=== PATIENT | male | born 1940 ===

== ENCOUNTER 2021-01-17 11:28 | Inpatient (IN) | payer OTHER ==
[~2021-01-17] VITALS: Ht 170.2 cm; Wt 72.6 kg
[2021-01-17] MEDS ORDERED: DOXAZOSIN MESYLA4 MG (11:41)
[2021-01-17] MEDS ORDERED: ENALAPRIL MALEA10 MG (11:41)
[2021-01-17] MEDS ORDERED: CHLORTHALIDONE25 MG (11:41)
[2021-01-17] MEDS ORDERED: PEPCID AC20 MG (11:41)
[2021-01-17] MEDS ORDERED: ATORVASTATIN CA40 MG (11:42)
== END 2021-01-25 16:36 | disposition home or self-care (01) | DRG 445 ==
LOC: ER 11:28 → SEC-K 21:00 → MEDI 21:00 → O/R 01-18 13:54 → SEC-K 01-18 14:01 → MEDI 01-19 14:27
PROVIDERS: Internal Medicine Gastroenterology; ADMIT Internal Medicine; ATTEND Internal Medicine
PROC: B24BZZZ Ultrasonography of Heart with Aorta (ICD-10-PCS; 2021-01-19)
PROC: 0FJB8ZZ Inspection of Hepatobiliary Duct, Via Natural or Artificial Opening Endoscopic (ICD-10-PCS; principal; 2021-01-23 13:00)
DX: K80.50 Calculus of bile duct without cholangitis or cholecystitis without obstruction (principal); N17.8 Other acute kidney failure; I95.89 Other hypotension; I10 Essential (primary) hypertension; E86.0 Dehydration; E87.8 Other disorders of electrolyte and fluid balance, not elsewhere classified; R41.82 Altered mental status, unspecified; Z20.822 Contact with and (suspected) exposure to COVID-19